=== PATIENT | male | born 1965 | race Caucasian/White ===

== ENCOUNTER 2023-12-27 14:00 | Outpatient (RCR) | payer OTHER, SELFPAY | END 2024-02-10 10:48 | disposition home or self-care (01) | LOC: HO.PT 14:00 | PROVIDERS: PCP Family Medicine; Visit Provider Surgery Vascular Surgery | DX: Z89.512 Acquired absence of left leg below knee (principal) | CPT/HCPCS: 97110; 97112; 97116; 97162; 97535 ==